=== PATIENT | female | born 1990 | race Caucasian/White ===

== ENCOUNTER 2021-11-22 08:50 | Outpatient (CLI) | payer OTHER, SELFPAY ==
--- NOTE | ~2021-11-22 | CT_ITS ---
EXAMINATION: CT abdomen pelvis w con EXAM DATE: 11/22/2021 09:34 INDICATION: R10.9 - Unspecified abdominal pain. TECHNIQUE: Spiral CT of the abdomen and pelvis was performed following intravenous injection of 100 m L Omnipaque 350. Axial, coronal and sagittal images of the abdomen and pelvis were reviewed. The do se-length product (DLP) for this examination was 288.82 mGy-cm. The exposure was tailored according to patient size (auto mA exposure control), and iterative reconstruction (ASIR) was used as additiona l dose reduction technique. Comparison is made to prior examination from 09/07/2018. FINDINGS: The liver, spleen, adrenal glands and pancreas are unremarkable. Gallbladder is unremarkab le. No biliary obstruction. Portal and splenic veins are patent. Kidneys enhance symmetrically. Se veral left inferior calyceal stones up to 3 mm in size. There is a punctate right superior calyceal s tone. There is no hydronephrosis. The uterus is retroverted and morphologically normal. There is a recently ruptured right ovarian physiologic or hemorrhagic cyst, small amount of resultant free pelvi c fluid. The bladder is unremarkable. There is no retroperitoneal or pelvic lymphadenopathy. The appendix is normal. The stomach and small bowel are unremarkable. There is expected amount of c olonic stool. No free intraperitoneal gas. The heart is normal in size. There are no pericardial or pleural effusions. The lung bases are unremarkable. Mild to moderate L5-S1 disc disease. IMPRESSION: 1. Evidence of recently ruptured right ovarian physiologic or hemorrhagic cyst. Otherwise unremarkabl e exam. 2. Small nonobstructing bilateral calyceal stones. Reviewed, dictated and finalized at location B. IMPRESSION: 1. Evidence of recently ruptured right ovarian physiologic or hemorrhagic cyst. Otherwise unremarkable exam. 2. Small nonobstructing bilateral calyceal stones.
== END 2021-11-22 08:51 | disposition home or self-care (01) ==
PROVIDERS: PCP Physician Assistant; Visit Provider Physician Assistant
DX: R10.9 Unspecified abdominal pain (principal); N20.0 Calculus of kidney; N83.291 Other ovarian cyst, right side
CPT/HCPCS: 74177; Q9967

== ENCOUNTER 2022-06-23 16:13 | Outpatient (CLI) | payer OTHER, SELFPAY ==
--- NOTE | ~2022-06-23 | MR_ITS ---
EXAMINATION: MR lumbar spine wo con DATE: 06/23/2022 17:22 INDICATION: Low back pain. TECHNIQUE: Magnetic resonance imaging (MRI) of the lumbar spine was performed without intravenous con trast. Sequences included sagittal T2-weighted FSE, sagittal T2-weighted FS FSE, sagittal T1-weighted FSE, and axial T2-weighted FSE. COMPARISON: None FINDINGS: Bone alignment is normal. Vertebral body heights are normal. There is moderately decreased disc height at L5-S1. The distal spinal cord signal intensity is normal. The conus medullaris is at L 1. The following disc levels are specifically discussed: L1-L2: The disc does not extend beyond the endplate margin. There is mild bilateral facet joint osteo arthritis. There is no neural foraminal stenosis. There is no central canal stenosis. L2-L3: The disc does not extend beyond the endplate margin. There is mild bilateral facet joint osteo arthritis. There is no neural foraminal stenosis. There is no central canal stenosis. L3-L4: The disc does not extend beyond the endplate margin. There is mild bilateral facet joint osteo arthritis. There is no neural foraminal stenosis. There is no central canal stenosis. L4-L5: The disc does not extend beyond the endplate margin. There is mild bilateral facet joint osteo arthritis. There is no neural foraminal stenosis. There is no central canal stenosis. L5-S1: The disc is bulging with superimposed right central extrusion. There is mild bilateral facet j oint osteoarthritis. There is mild left neural foraminal stenosis. There is mild central canal stenos is. IMPRESSION: 1. Moderate spondylosis at L5-S1. Reviewed, dictated and finalized at location A. MAKER
== END 2022-06-23 16:14 | disposition home or self-care (01) ==
PROVIDERS: PCP Physician Assistant; Visit Provider Physician Assistant
DX: M54.50 Low back pain, unspecified (principal); M47.897 Other spondylosis, lumbosacral region
CPT/HCPCS: 72148

== ENCOUNTER 2022-07-13 06:58 | Outpatient (CLI) | payer OTHER, SELFPAY ==
--- NOTE | 2022-07-30 17:43 | WPDHOMESLEEP ---
Sleep Study - Home Unattended Date of Study: 07/13/22 Ordering Provider: Marcel Reza PA-C Interpreting Provider: Lissette Parish MD Home Sleep Study Type: Watch PAT Height: 1.7 m Weight: 65.771 kg Body Mass Index: 22.7 Neck Circumference (inches): 13 [place]: 11 Reason for Sleep Study Witnessed apnea, gasps for air while sleeping Sleep History Marybel Camarillo is a 32-year-old female with a history of snoring, witnessed apneas and gasping for breath at night. She has anxiety, takes vilazodone 20 mg, bupropion 150 mg and quetiapine 100 mg every night to help get to sleep. There is a family history of sleep disorders, her father uses CPAP. She occasionally awakens from sleep feeling short of breath. She frequently awakens at night with heartburn, belching or coughing. She frequently snores loudly enough that others complain about it. She rarely has trouble sleeping with a cold. She occasionally wakes up gasping for breath at night. She frequently sweats excessively at night. She rarely notices her heart pounding or beating irregularly at night. She does not fall asleep during the day, does not fall asleep involuntarily or while driving. She does not have loss of muscle tone with strong emotion. She does not have daytime difficulties due to excessive sleepiness. She has had feeling of paralysis on waking or falling asleep twice in the past. She does not have vivid dreamlike scenes on waking or falling asleep. She does not feel afraid to go to sleep. She does not have nightmares. She frequently remembers her dreams. She does not have racing thoughts. She rarely feels sad or depressed. She rarely has anxiety. She does not have muscular tension. She frequently notices parts of her body jerking. She rarely kicks at night. She does not have crawling or aching feelings in her legs or any kind of leg pain at night. She denies morning jaw pain. SHe does not grind her teeth at night, does not have pain in the day, does not wake up with pain at night, does not wake up stiff in the morning with sore achy muscles or neck and spine pain. Normal bedtime is 8:30 p.m. taking 30-45 minutes fall asleep, typically waking 1-2 times at night for a few minutes either to go to the bathroom or take 1 of her children back to bed. She wakes the morning at 6:15 a.m.. Weekend schedule is similar, bedtime is 9:00 p.m. and wake up time is between 7 and 8:00 a.m.. She estimates getting 8-10 hours of sleep at night. Her sleep is disturbed by a child getting in the bed or sweating. She does not take naps in the day. A short nap may be refreshing. She is usually drowsy for 2 hours after waking. She feels better in the morning compared to other times of day. Habits: Never smoked tobacco. Caffeine 1-2 cups a day. No alcohol or recreational drugs. [facility] Past Medical History Medical History (Updated 07/30/22 @ 18:32 by Lissette Parish MD) Anxiety Family History Family History Mother Patient's mother is in good health Father Patient's father is in good health Social History Social History Smoking status: Never smoker Second hand tobacco smoke exposure: No Alcohol intake: current Substance use: never Medications Home Medications Medication Instructions Recorded Confirmed Type vilazodone 20 mg tablet (Viibryd) 20 mg PO DAILY 11/15/21 05/18/22 History buspirone 15 mg tablet 15 mg PO ONCE 02/07/22 05/18/22 History quetiapine 100 mg tablet 100 mg PO QHS 02/07/22 05/18/22 History cholecalciferol (vitamin D3) 125 125 mcg PO DAILY 05/18/22 05/18/22 History mcg (5,000 unit) capsule methylprednisolone 4 mg tablets in See Rx Instructions PO PER PKG DIR 05/18/22 05/18/22 Rx a dose pack (Medrol (Vern)) #21 ea Sleep Procedure The sleep study was completed using WatchPAT a technically adequate device wit
[2022-07-30 18:38] VITALS: BMI 22.7
== END 2022-07-14 12:29 | disposition home or self-care (01) ==
PROVIDERS: PCP Physician Assistant; Visit Provider Physician Assistant
DX: R06.81 Apnea, not elsewhere classified (principal); R06.83 Snoring
CPT/HCPCS: 95800

== ENCOUNTER 2022-11-11 08:41 | Outpatient (CLI) | payer OTHER, SELFPAY ==
--- NOTE | ~2022-11-11 | US_ITS ---
US abdomen limited DATE: 11/11/2022 09:21 INDICATION: Pain with meals. TECHNIQUE: Real-time imaging and Doppler analysis COMPARISON: November 22, 2021 CT abdomen pelvis FINDINGS: No hepatic or pancreatic space-occupying mass lesion. Normal hepatopedal portal venous flow direction. No gallstones or gallbladder wall thickening or abnormal pericholecystic fluid collection. Negative s onographic Whitman's sign. The common bile duct measures up to 3.7 mm, normal. IMPRESSION: Negative examination Reviewed, dictated and finalized at [facility]. Reviewed, dictated and finalized at location B. IMPRESSION: Negative examination
== END 2022-11-11 08:42 | disposition home or self-care (01) ==
PROVIDERS: PCP Physician Assistant; Visit Provider Physician Assistant
DX: K81.9 Cholecystitis, unspecified (principal)
CPT/HCPCS: 76705